=== PATIENT | female | born 1975 | race Caucasian/White ===

== ENCOUNTER 2024-09-26 09:04 | Emergency (ER) | payer MEDICAID, OTHER ==
[~2024-09-26] VITALS: Ht 175.3 cm; Wt 139.0 kg
[2024-09-26] MEDS: ASPirin 81 mg TAB PO ONE (09:27)
[2024-09-26] MEDS: cloNIDine HCL 0.1 MG TAB PO ONE (09:27)
[2024-09-26] MEDS: HYDROcodone-ACET 7.5/325MG TAB PO ONE (09:27)
--- NOTE | 2024-09-26 10:14 | ED.PDOC ---
Musculoskeletal HPI Comments 49-year-old obese female with a history of hypertension (diagnosed in 2017) currently taking lisinopril 10 mg before bedtime presents with a chief complaint of nonradiating right anterior knee pain after she tripped on her doorstep. Reports landing on a knee causing sudden pain that is rated 7/10. Able to bear weight on the leg but worsens with flexion-extension Denies skin color changes around the knee Denies masses around the knee Denies popping/locking/giving out of the knee Denies fever chills night sweats nausea vomiting Denies previous surgeries to the knee nor significant injury Denies history of AL or CVA Denies lightheadedness or dizziness Denies acid reflux, recurrent bitter/sour taste in mouth Denies shortness of breath Denies palpitations, leg swelling Denies family history of heart issues or AL Denies history of panic attacks Denies recent trauma to the chest, history of significant trauma to the chest nor surgeries of the chest Denies fever chills nausea vomiting diarrhea Chief Complaint: Lower Extremity Time Seen by MD: 09:17 Primary Care Provider: UNKNOWN Reviewed Notes: Nurses Notes, Medications, Allergies Allergies: Coded Allergies: NO KNOWN ALLERGIES (Unverified , 09/26/24) Information Source: Patient Mode of Arrival: Ambulatory Family History Family History: Reviewed,noncontributory to illness Social History Smoker: Non-Smoker Alcohol: Denies ETOH Use Drugs: Denies Drug Use All Other Systems: Reviewed and Negative (Per HPI) Physical Exam General Appearance: No Apparent Distress, Normal HEENT: Normal ENT Inspection, Pharynx Normal, TMs Normal Neck: Full Range of Motion, Non-Tender, Normal, Normal Inspection Respiratory: Chest Non-Tender, Lungs Clear, No Accessory Muscle Use, No Respiratory Distress, Normal Breath Sounds Cardiovascular: No Edema, No JVD, No Murmur, No Gallop, Normal Peripheral Pulses, Regular Rate/Rhythm Breast Exam: Deferred Gastrointestinal: No Organomegaly, Non Tender, No Pulsatile Mass, Normal Bowel Sounds, Soft Genitalia: Deferred Pelvic: Deferred Rectal: Deferred Extremities: No calf tenderness, Normal capillary refill, Normal inspection, Normal range of motion, Non-tender, No pedal edema Musculoskeletal : Location: Right Extremity Location: Knee (Normal on inspection.) Apperance: Normal Neurologic: Alert, comic writer II-XII nml as Tested, No Motor Deficits, Normal Affect, Normal Mood, No Sensory Deficits Cerebellar Function: Normal Reflexes: Normal Skin: Dry, Normal Color, Warm Lymphatic: No Adenopathy Was a procedure done? Was a procedure done?: No Differential Diagnosis EXT Differential Diagnosis: Fracture, Sprain, Dislocation X-Ray, Labs, Meds, VS Vital Signs Date Time Temp Pulse Resp B/P (MAP) Pulse Ox O2 Delivery O2 Flow Rate FiO2 09/26/24 09:27 204/105 09/26/24 09:17 67 09/26/24 09:09 97.8 81 18 204/105 (138) 97 212/106 (141) Lab Test 09/26/24 09:58 Range/Units White Blood Count 7.7 4.4-10.8 10^3/uL Red Blood Count 5.14 4.0-5.20 10^6/uL Hemoglobin 16.6 H 12.2-16.2 g/dL Hematocrit 48.0 H 36.0-46.0 % Mean Corpuscular Volume 93.5 80.0-100.0 fL Mean Corpuscular Hemoglobin 32.2 H 28.0-32.0 pg Mean Corpuscular Hemoglobin Concent 34.5 32.0-36.0 g/dL Red Cell Distribution Width 12.9 11.8-14.3 % Platelet Count 227 140-450 10^3/uL Mean Platelet Volume 9.1 6.9-10.8 fL Neutrophils (%) (Auto) 58.8 37.0-80.0 % Lymphocytes (%) (Auto) 31.1 10.0-50.0 % Monocytes (%) (Auto) 4.5 0.0-12.0 % Eosinophils (%) (Auto) 5.1 0.0-7.0 % Basophils (%) (Auto) 0.5 0.0-2.0 % Neutrophils # (Auto) 4.5 1.6-8.6 10 ^3/uL Lymphocytes # (Auto) 2.4 0.4-5.4 10 ^3/uL Monocytes # (Auto) 0.4 0-1.3 10 ^3/uL Eosinophils # (Auto) 0.4 0-0.8 10 ^3/uL Basophils # (Auto) 0 0-0.2 10 ^3/uL Nucleated Red Blood Cells 0.1 % Urine Color Pending Urine Clarity Pending Urine pH Pending Urine Specific [place] Pending Urine Protein Pending Urine Ketones Pending Urine Blood Pending Urine Nitrite Pending Urine Bilirubin Pending Urine Urobilinogen Pending Urine Leukocyte Esterase Pending Urine RBC Pending Urine WBC Pending Urine Squamous Epithelial Cells Pending Urine Bacteria Pending Urine Glucose Pending Sodium Level 140 136-145 mmol/L Potassium Level 4.2 3.5-5.1 mmol/L Chloride Level 107 98-107 mmol/L Carbon Dioxide Level 29 20-31 mmol/L Anion Gap 4 L 5-15 Blood Urea Nitrogen 9 9-23 mg/dL Creatinine 0.90 0.550-1.02 mg/dL Glomerular Filtration Rate Calc 78 >90 mL/min BUN/Creatinine Ratio 10.0 10.0-20.0 Serum Glucose 95 74-106 mg/dL Calcium Level 11.0 H 8.7-10.4 mg/dL Troponin I High Sensitivity 3 L </=34 ng/L Current Medications Medications (Trade) Dose Ordered Sig/Usman Route Start Time Stop Time Status Last Admin Aspirin 81 mg ONCE ONCE PO 09/26/24 09:30 09/26/24 09:31 DC 09/26/24 09:27 Clonidine HCl (Catapres Tablet) 0.2 mg ONCE ONCE PO 09/26/24 09:30 09/26/24 09:31 DC 09/26/24 09:27 Acetaminophen/ Hydrocodone Bitart ([place] 7.5/325MG Tab) 1 tab ONCE ONCE PO 09/26/24 09:30 12 09:31 DC 09/26/24 09:27 X-Ray, Labs, Meds, VS Comment 49-year-old female with a history of hypertension presents with a hypertensive urgency S/P mechanical fall. Blood pressure elevated during triage therefore EKG was ordered to rule out ST elevation. Findings showed right bundle block branch possible ST elevation. Findings discussed with Dr. Leigh and was advised to order cardiology workup. Labs ordered and reviewed by myself. Findings were relayed to Dr. Leigh and was advised patient is stable for d ischarge and needs follow up with Cardiology. Findings relayed to the patient and history consistent with sprain of the knee X-rays ordered, read by radiologist and reviewed by me Take Tylenol w/ food as needed for pain Recommended heat therapy Reviewed RICE management Avoid heavy lifting or strenuous activity Recommended range of motion exercises and limit heavy activity for 1 week If no improvement advised patient to return to the emergency department for follow-up. Discussed possibility of a occult fracture Patient is stable for discharge at this time. External notes reviewed. Test results and diagnostic imaging interpreted. All diagnostic findings, discharge care, education and instructions provided Follow-up with PCP in 2 to 3 days Patient verbalized understanding and agreed to treatment plan Vital signs stable, afebrile, no acute distress noted Patient ambulatory with strong steady gait Advised to return precautions for any new or worsening symptoms, return to ER immediately for re-evaluation Patient is aware that the purpose of this visit was for an acute medical emergency requiring emergent stabilization. Chronic conditions, including malignancies have not been ruled out. Patient is instructed to follow up with PCP as directed and discharge instructions for continued care and workup. If unable to arrange follow-up, patient is to return to the emergency department for reassessment. Patient (parent or legal guardian if applicable) was given verbal and written discharge instructions and acknowledges understanding. Time of 1ST Reevaluation: 10:14 Reevaluation 1ST: Improved Patient Education/Counseling: Diagnosis, Treatment Family Education/Counseling: Diagnosis, Treatment Departure 1 Departure Time of Disposition: 13:54 Impression: Primary Impression: Knee sprain Qualified Codes: S83.8X1A - Sprain of other specified parts of right knee, initial encounter Additional Impressions: Fall Qualified Codes: W19.XXXA - Unspecified fall, initial encounter Hypertensive urgency Disposition: 01 HOME / SELF CARE / HOMELESS Condition: Stable e-Prescriptions Naproxen Sodium (Naproxen) 220 Mg Tab 220 MG PO BIDWM for 14 Days, #28 TAB 0 Refills Prov: JOSE MOTTA NP 09/26/24 Diclofenac Sodium (Topical) (Voltaren Arthritis Pain) 1 % Gel 1 APPLIC EX QID for 14 Days, #60 GRAMS 0 Refills Prov: JOSE MOTTA NP 09/26/24 Discharged With: Self Critical Care Note Critical Care Time?: No Stability Stability form required: No Heart Score Heart Score: Heart Score Response (Comments) Value History N/A 0 EKG N/A 0 Age N/A 0 Risk Factors N/A 0 Troponin N/A 0 Total 0 JOSE MOTTA NP Sep 26, 2024 10:14
[2024-09-26 10:28] LABS: Basophils # (auto) 0 10 ^3/uL (0-0.2); Basophils % (auto) 0.5 % (0.0-2.0); Eosinophils # (auto) 0.4 10 ^3/uL (0-0.8); Eosinophils % (auto) 5.1 % (0.0-7.0); Hemoglobin 16.6 g/dL (12.2-16.2); Lymphocytes # (auto) 2.4 10 ^3/uL (0.4-5.4); Lymphocytes % (auto) 31.1 % (10.0-50.0); Mean Corpuscular Hemoglobin 32.2 pg (28.0-32.0); Mean Corpuscular Hgb Conc. 34.5 g/dL (32.0-36.0); Mean Corpuscular Volume 93.5 fL (80.0-100.0); Monocytes # (auto) 0.4 10 ^3/uL (0-1.3); Monocytes % (auto) 4.5 % (0.0-12.0); Neutrophils # (auto) 4.5 10 ^3/uL (1.6-8.6); Neutrophils % (auto) 58.8 % (37.0-80.0); Nucleated Red Blood Cells % 0.1 %; Platelet Count (auto) 227 10^3/uL (140-450); Red Blood Cells 5.14 10^6/uL (4.0-5.20); Red Cell Distribution Width 12.9 % (11.8-14.3); White Blood Cell 7.7 10^3/uL (4.4-10.8)
[2024-09-26 10:46] LABS: Chloride 107 mmol/L (98-107); Potassium 4.2 mmol/L (3.5-5.1); Sodium 140 mmol/L (136-145)
[2024-09-26 10:47] LABS: Anion Gap 4 (5-15); Carbon Dioxide 29 mmol/L (20-31)
[2024-09-26 10:52] LABS: Blood Urea Nitrogen 9 mg/dL (9-23); Glucose 95 mg/dL (74-106)
--- NOTE | 2024-09-26 11:15 | DVH ---
Procedure: XY CHEST TWO VIEWS ROUTINE 09/26/2024 10:36 AM Indication: Elevated BP Comparison: None TECHNIQUE: XY CHEST TWO VIEWS ROUTINE FINDINGS: Medical devices: None. Cardiomediastinal: The heart is normal in size. Pulmonary vasculature is within normal limits. Athero sclerotic calcification of the aortic arch noted. Lungs: No focal pulmonary opacity is seen. The costophrenic angles are clear. No pneumothorax. Bones/soft tissues: Flowing anterior osteophytes are seen at least 4 consecutive levels with preserva tion of disc heighst compatible with diffuse idiopathic skeletal hyperostosis of the thoracic spine. Postoperative changes of the lower cervical spine noted. IMPRESSION: 1. No acute cardiopulmonary disease.
--- NOTE | 2024-09-26 11:21 | DVH ---
CLINICAL INDICATION: fall TECHNIQUE: XY R KNEE 4V XRAY Comparison: None FINDINGS/IMPRESSION: There is no evidence of acute fracture or dislocation. Moderate right knee osteoarthritis The alignment is anatomical. There is no radiopaque foreign body.
[2024-09-26 13:57] VITALS: BP 137/75; PULSE 55; RESP 16; TEMP 98.1; O2SAT 98
[2024-09-26] MEDS ORDERED: NAPR-1335 PO (13:59)
[2024-09-26] MEDS ORDERED: DICL1GEL59 EX (13:59)
--- NOTE | 2024-09-28 10:35 | ECG ---
[facility] Test Date: 2024-09-26 Test Time: 09:17:38 Pat Name: MILADY PEREZ Department: ER Room: Gender: F Physical Science Aide: YEMI : 1975 Requested By: JOSE MOTTA Order Number: [id number] Reading MD: Kip White Measurements Intervals [place] Rate: 67 P: 49 MA: 172 QRS: -38 QRSD: 117 T: 54 QT: 402 QTc: 425 Interpretive Statements Sinus rhythm Incomplete RBBB and LAFB ST elevation, consider inferior injury Baseline wander in lead(s) V5 Electronically Signed On 09-28-2024 16:13:29 PST by Kip White Please click the below link to view image of tracing.
== END 2024-09-26 14:57 | disposition home or self-care (01) ==
LOC: ER 09:04
DX: S83.8X1A Sprain of other specified parts of right knee, initial encounter (principal); Z79.899 Other long term (current) drug therapy; W01.0XXA Fall on same level from slipping, tripping and stumbling without subsequent striking against object, initial encounter; Y93.89 Activity, other specified; Y92.89 Other specified places as the place of occurrence of the external cause; Y99.8 Other external cause status
CPT/HCPCS: 36415; 71046; 73564; 80048; 84484; 85025; 93005